=== PATIENT | male | born 1970 | race African-American/Black ===

== ENCOUNTER 2023-10-09 06:27 | Inpatient (IN) | payer MEDICAID ==
[~2023-10-09] VITALS: Ht 177.8 cm; Wt 69.9 kg
[2023-10-09] MEDS ORDERED: CLONIDINE 0.2MG TABLET PO ONE (07:15)
[2023-10-09 07:20] LABS: BASOPHILS % 0.9 % (0.0-2.0); EOSINOPHILS % 0.7 % (0.0-5.0); HEMATOCRIT. 38.9 % (42.0-52.0); HEMOGLOBIN. 12.4 g/dL (14.0-18.0); LYMPHOCYTES % 11.8 % (20.0-50.0); MEAN CORPUSCULAR HEMOGLOBIN 28.4 pg (28.0-32.0); MEAN CORPUSCULAR HGB CONC 31.9 g/dL (31.0-37.0); MEAN CORPUSCULAR VOLUME 88.9 fL (80.0-94.0); MEAN PLATELET VOLUME 7.3 fl (7.4-10.4); MONOCYTES % 6.1 % (2.0-8.0); NEUTROPHILS % 80.5 % (40.0-76.0); PLATELET 436 x1000/uL (130-400); RED BLOOD CELL COUNT 4.38 mill/uL (4.7-6.1); RED CELL DISTRIBUTION WIDTH 13.9 % (11.6-14.6); WHITE BLOOD COUNT 11.2 x1000/uL (4.5-11.0)
[2023-10-09] MEDS: FUROSEMIDE 40MG/4ML VIAL IVP ONE (07:24)
[2023-10-09] MEDS: NITROGLYCERIN OINT 1GM/INCH UDPKT TD ONE (07:25)
[2023-10-09 07:33] LABS: CHLORIDE 105 mEq/L (98-107); POTASSIUM 4.4 mEq/L (3.5-5.1); SODIUM 139 mEq/L (136-145)
[2023-10-09 07:34] LABS: CARBON DIOXIDE 30 mEq/L (21-32)
[2023-10-09 07:39] LABS: GLUCOSE 108 mg/dL (70-105); UREA NITROGEN BLOOD 52 mg/dL (9-23)
[2023-10-09] MEDS: CLONIDINE 0.1MG TABLET PO NR (08:30)
[2023-10-09 09:12] LABS: TROPONIN I HIGH SENSITIVITY 117 ng/L (3.0-53)
[2023-10-09] MEDS: NICARDIPINE 40MG/200ML PREMIX 200 ML IV PRN (09:44)
[2023-10-09 10:17] LABS: TROPONIN I HIGH SENSITIVITY 126 ng/L (3.0-53)
[2023-10-10] VITALS (7 sets, daily range): BP systolic 125–174; BP diastolic 57–114; PULSE 76–102; RESP 16–20; TEMP 97.1–98.2
[2023-10-10] MEDS: ASPIRIN 81MG TABLET PO SCH (08:19)
[2023-10-10] MEDS: CARVEDILOL 3.125 MG TABLET PO SCH (08:20)
[2023-10-10] MEDS: AMLODIPINE 10MG TABLET PO SCH (08:20)
[2023-10-10] MEDS: FUROSEMIDE 40MG/4ML VIAL IVP SCH ×2 (08:20→22:02)
[2023-10-10] MEDS: LOSARTAN 100 MG TABLET PO SCH (18:54)
[2023-10-10] MEDS: CARVEDILOL 12.5MG TABLET PO SCH (18:54)
[2023-10-10 22:21] LABS: *AMPHETAMINES SCREEN URINE NEGATIVE (NEGATIVE); *BARBITURATES SCREEN URINE NEGATIVE (NEGATIVE); *BENZODIAZEPINES SCREEN URINE NEGATIVE (NEGATIVE); *COCAINE SCREEN URINE PRESUMPTIVE POSITIVE (NEGATIVE); METHADONE URINE SCREEN NEGATIVE (NEGATIVE)
[2023-10-10 22:22] LABS: CANNABINOID URINE SCREEN NEGATIVE (NEGATIVE); ECSTASY MDMA SCREEN URINE NEGATIVE (NEGATIVE); OPIATES URINE SCREEN NEGATIVE (NEGATIVE); PHENCYCLIDINE URINE SCREEN NEGATIVE (NEGATIVE)
[2023-10-11] VITALS: BP 139/85; PULSE 83; RESP 17; TEMP 97.1
[2023-10-11 04:00] VITALS: BP 145/102; PULSE 79; RESP 18; TEMP 97
[2023-10-11 08:00] VITALS: BP 148/94; PULSE 82; RESP 16; TEMP 98.1
[2023-10-11 08:18] LABS: HEMATOCRIT 41.3 % (42.0-52.0); HEMOGLOBIN 13.5 g/dL (14.0-18.0); MEAN CORPUSCULAR HEMOGLOBIN 28.7 pg (28.0-32.0); MEAN CORPUSCULAR HGB CONC 32.8 g/dL (31.0-37.0); MEAN CORPUSCULAR VOLUME 87.7 fL (80.0-94.0); PLATELET 410 x1000/uL (130-400); RED CELL DISTRIBUTION WIDTH 13.8 % (11.6-14.6); WHITE BLOOD COUNT 10.2 x1000/uL (4.5-11.0)
[2023-10-11 08:30] LABS: CHLORIDE 101 mEq/L (98-107); POTASSIUM 3.9 mEq/L (3.5-5.1); SODIUM 139 mEq/L (136-145)
[2023-10-11 08:31] LABS: CALCIUM 8.6 mg/dL (8.7-10.4); CARBON DIOXIDE 31 mEq/L (21-32)
[2023-10-11 08:37] LABS: CREATININE 1.7 mg/dL (0.6-1.3); GLUCOSE 74 mg/dL (70-105); UREA NITROGEN BLOOD 32 mg/dL (9-23)
[2023-10-11 08:38] LABS: ALANINE AMINOTRANSFERASE 46 IU/L (10-49); ASPARTATE AMINOTRANSFERASE 32 IU/L (<34)
[2023-10-11 08:39] LABS: BILIRUBIN DIRECT 0.2 mg/dL (<=3.0); BILIRUBIN TOTAL 0.5 mg/dL (0.1-1.0)
[2023-10-11 08:40] LABS: PROTEIN TOTAL 5.6 g/dL (6.0-8.3)
[2023-10-11] MEDS: METOLAZONE 2.5MG TABLET PO SCH (09:52)
[2023-10-11 12:00] VITALS: BP 108/70; PULSE 70; RESP 18; TEMP 97.2
[2023-10-11 16:00] VITALS: BP 129/83; PULSE 83; RESP 18; TEMP 96.3
[2023-10-11 21:34] VITALS: BP 118/78; PULSE 89; RESP 18; TEMP 97.7
[2023-10-12] VITALS (7 sets, daily range): BP systolic 116–136; BP diastolic 70–92; PULSE 71–92; RESP 18–20; TEMP 97–97.9
[2023-10-12] MEDS ORDERED: AMLO10TA80 PO (11:54)
[2023-10-12] MEDS ORDERED: FURO80TA87 MT (11:54)
[2023-10-12] MEDS ORDERED: COR12 PO (11:54)
[2023-10-12] MEDS ORDERED: LOSA100T33 PO (11:54)
[2023-10-12] MEDS ORDERED: POTA-205 MT (11:54)
[2023-10-13] VITALS: BP 102/67; PULSE 90; RESP 19; TEMP 97.3
[2023-10-13 04:00] VITALS: BP 118/62; PULSE 91; RESP 20; TEMP 97.5
[2023-10-13 08:00] VITALS: BP 143/87; PULSE 82; RESP 18; TEMP 97.7
[2023-10-13 12:01] VITALS: BP 111/71; PULSE 80; RESP 18; TEMP 97.4
[2023-10-13 16:00] VITALS: BP 110/70; PULSE 78; RESP 18; TEMP 97.6
[2023-10-13 20:00] VITALS: BP 129/82; PULSE 89; RESP 18; TEMP 97.7
[2023-10-14] VITALS: BP 117/69; PULSE 75; RESP 19; TEMP 97.2
[2023-10-14 04:00] VITALS: BP 120/71; PULSE 80; RESP 18; TEMP 97.5
[2023-10-14 08:00] VITALS: BP 146/93; PULSE 78; RESP 18; TEMP 97.1
[2023-10-14 12:00] VITALS: BP 117/79; PULSE 76; RESP 18; TEMP 96.3
[2023-10-14 15:53] VITALS: BP 105/67; PULSE 82; RESP 20; TEMP 96.1
[2023-10-14 16:38] LABS: BASOPHILS % 1.1 % (0.0-2.0); EOSINOPHILS % 3.6 % (0.0-5.0); HEMATOCRIT. 42.1 % (42.0-52.0); HEMOGLOBIN. 13.7 g/dL (14.0-18.0); LYMPHOCYTES % 19.3 % (20.0-50.0); MEAN CORPUSCULAR HEMOGLOBIN 28.3 pg (28.0-32.0); MEAN CORPUSCULAR HGB CONC 32.6 g/dL (31.0-37.0); MEAN PLATELET VOLUME 7.1 fl (7.4-10.4); MONOCYTES % 11.2 % (2.0-8.0); NEUTROPHILS % 64.8 % (40.0-76.0); PLATELET 462 x1000/uL (130-400); RED BLOOD CELL COUNT 4.84 mill/uL (4.7-6.1); RED CELL DISTRIBUTION WIDTH 13.9 % (11.6-14.6); WHITE BLOOD COUNT 8.3 x1000/uL (4.5-11.0)
[2023-10-14 16:41] LABS: CALCIUM 9.3 mg/dL (8.7-10.4)
[2023-10-14 16:56] LABS: CREATININE 2.3 mg/dL (0.6-1.3)
[2023-10-14] MEDS: POTASSIUM CHLORIDE 20MEQ TABLET SR PO NR (17:07)
[2023-10-14 20:00] VITALS: BP 130/68; PULSE 88; RESP 20; TEMP 96.7
[2023-10-15] VITALS (8 sets, daily range): BP systolic 101–129; BP diastolic 56–88; PULSE 77–88; RESP 18–20; TEMP 97.5–98.2
[2023-10-16] VITALS: BP 110/84; PULSE 78; RESP 20; TEMP 97.8
[2023-10-16 04:00] VITALS: BP 112/72; PULSE 81; RESP 20; TEMP 98
[2023-10-16 08:00] VITALS: BP 118/76; PULSE 85; RESP 17; TEMP 97.9
[2023-10-16 12:00] VITALS: BP 119/63; PULSE 79; RESP 19; TEMP 97.9
[2023-10-16 16:00] VITALS: BP 108/70; PULSE 70; RESP 20; TEMP 97.9
[2023-10-16 20:32] VITALS: BP 112/62; PULSE 89; RESP 20; TEMP 97.8
[2023-10-17 00:47] VITALS: BP 121/86; PULSE 96; RESP 16; TEMP 97.1
[2023-10-17 04:00] VITALS: BP 117/77; PULSE 86; RESP 19; TEMP 97.5
[2023-10-17 08:00] VITALS: BP 111/74; PULSE 81; RESP 18; TEMP 97.4
[2023-10-17 10:29] LABS: POTASSIUM 3.2 mEq/L (3.5-5.1)
[2023-10-17] MEDS: POTASSIUM CHLORIDE 20MEQ TABLET SR PO SCH (11:12)
[2023-10-17 12:00] VITALS: BP 98/68; PULSE 75; RESP 18; TEMP 98.1
[2023-10-17 12:35] LABS: POTASSIUM 3.3 mEq/L (3.5-5.1)
[2023-10-17 12:36] LABS: CALCIUM 9.1 mg/dL (8.7-10.4)
[2023-10-17 12:41] LABS: CREATININE 2.2 mg/dL (0.6-1.3)
[2023-10-17 13:09] VITALS: BP 111/74; PULSE 81; TEMP 97.6; O2SAT 96
== END 2023-10-17 14:15 | disposition home or self-care (01) | DRG 194 ==
LOC: ER 06:27 → 5WST 12:58 → EDBEDREQSVC 13:02 → EDBEDREQ 13:02 → EDBEDREQTM 13:02 → 7WST 10-10 00:12
PROVIDERS: ADMIT Internal Medicine; ATTEND Internal Medicine
DX: I11.0 Hypertensive heart disease with heart failure (principal); J96.00 Acute respiratory failure, unspecified whether with hypoxia or hypercapnia; N17.9 Acute kidney failure, unspecified; I16.9 Hypertensive crisis, unspecified; F12.20 Cannabis dependence, uncomplicated; F17.210 Nicotine dependence, cigarettes, uncomplicated; D64.9 Anemia, unspecified; I16.0 Hypertensive urgency; F19.10 Other psychoactive substance abuse, uncomplicated; I50.23 Acute on chronic systolic (congestive) heart failure; Z91.148 Patient's other noncompliance with medication regimen for other reason
CPT/HCPCS: 36415; 71045; 80048; 80076; 80305; 83880; 84132; 84484; 85025; 85027; 93005; 93306; 97116; 97162; 99291; J1940